=== PATIENT | female | born 1945 | race Caucasian/White ===

== ENCOUNTER 2021-07-14 01:50 | Day surgery (SDC) | payer MEDICARE, SELFPAY ==
[2021-07-03 09:17] VITALS: BMI 30.9
--- NOTE | 2021-07-03 09:24 | PC.NURSE ---
Report to the Outpatient Waiting Room, entrance under the green pavilion located off [facility], at time 06 on date _07/14/21 . OR Time: 814 . - You and your visitor will be asked a series of questions to screen for COVID 19 for your protection. - A mask is required within the hospital. - Only one visitor is allowed at this time. Patient visitors will be guided where to wait when not with patient. Preoperative COVID Testing Requirements: No COVID Test needed if: (proof is required; if not received patient will have Rapid Test prior to entry) - Patient has received COVID Vaccine at least 14 days prior to procedure date or - Patient has positive COVID test result within last 90 days of surgery date. COVID Test needed if above criteria is not met If not COVID vaccinated a COVID test must be conducted within 72 hours of surgery and patient is asked to isolate self from time of testing until procedure. You will go to the [facility] for your COVID testing. The [facility] [employer] Testing site is located at the corner [address] [facility]. You will only be called if COVID results are positive and your surgeon may reschedule your elective surgery date. Patients may have clear liquids (water, carbonated beverages, clear teas, apple juice) until 3 hours prior to surgery with a maximum of 20 ounces. - No food from midnight until time of surgery - Infants may have breast milk until 4 hours before surgery, infant formula 6 hours prior to surgery. - Children will be allowed to drink immediately following surgery. If applicable, please bring a bottle or sippy cup to assist with drinking. Juice, water, soda, and popsicles are readily available. For infants on formula, please bring formula the day of surgery. Pacifiers are allowed. Take the following medications with a SIP of water the morning of surgery: ___METOPROLOL Medications to discontinue per physician ____ASPIRIN AND PT STATES ALL VITAMINS AND SUPPLEMENTS 7 DAYS PRE OP PER DR RICCI Date to take last dose_07/06/21 Please no make-up, nail romanian, hairspray, perfume, deodorant, or body powder the day of surgery. No jewelry (including any body piercings) or valuables the day of surgery, leave them at home. Please take a shower or bath the night before, or the morning of, surgery with an antibacterial soap. Wear comfortable, loose fitting clothing. Children are encouraged to wear pajamas. - Jewelry must be removed prior to entering the operating room. Rings and piercings that are not removed may be cut off. - The hospital will not accept responsibility for valuables. - Please leave all valuables, including medications, at home the day of surgery. If you are going home after surgery, a licensed route salesman and driver must drive you home. - NO public transportation without another adult. - We recommend that an adult stay with you for 24 hours following discharge. - We also recommend that you do not drive, make important decision, drink alcoholic beverages, or take any drugs that were not prescribed by your health care provider for at least 24 hours after your discharge time. For Pediatric surgeries, we recommend two adults accompany the child home (only one inside the building at this time). Follow any additional instructions given to you from your surgeon. Telephone instructions given to _PATIENT and asked if any additional questions and then verbalized understanding. Patient advised to call surgeon office or pre surgery nurse liaison [phone] if any additional questions.
--- NOTE | 2021-07-09 11:29 | P.HP_ITS ---
H&P: HPI History of Present Illness Date/Time: 07/09/21 11:29 76-year-old stress incontinence. Mild overactive bladder symptoms Chief Complaint: stress incontinence Review of Systems Review of Systems: All systems reviewed & are unremarkable except as noted in HPI and below PMFSH Social History Social History Smoking status: Never smoker Alcohol intake: current Drinks per week: 15 Living arrangements: with family Spiritual care concerns: No Meds Home Medications and Allergies Home Medications Medication Instructions Recorded Confirmed Type L. gasseri-B. bifidum-B longum 1 cap PO DAILY 07/03/21 07/03/21 History [[facility]] allopurinol 100 mg PO DAILY 07/03/21 07/03/21 History aspirin [Adult Low Dose Aspirin] 81 mg PO HS 07/03/21 07/03/21 History cholecalciferol (vitamin D3) 50 mcg PO DAILY 07/03/21 07/03/21 History cyanocobalamin (vitamin B-12) 5,000 mcg PO DAILY 07/03/21 07/03/21 History garlic 1,000 mg PO DAILY 07/03/21 07/03/21 History utdpr-px-5-xuu-jjm-njyavvg-ast 1 cap PO DAILY 07/03/21 07/03/21 History [krill oil] loratadine 10 mg PO HS 07/03/21 07/03/21 History lysine 1,000 mg PO DAILY 07/03/21 07/03/21 History metoprolol succinate 50 mg PO QAM 07/03/21 07/03/21 History iueyulvm-btqbbpy-vklo-lutein 1 tablet PO DAILY 07/03/21 07/03/21 History [Centrum Silver [facility] Women[facility]] omeprazole 20 mg PO DAILY 07/03/21 07/03/21 History psyllium husk [Daily Fiber] 0.4 g PO DAILY 07/03/21 07/03/21 History simvastatin 40 mg PO QPM 07/03/21 07/03/21 History trimethoprim 100 mg PO HS 07/03/21 07/03/21 History turmeric root extract 1,500 mg PO DAILY 07/03/21 07/03/21 History zinc 50 mg PO DAILY 07/03/21 07/03/21 History Allergies Allergy/AdvReac Type Severity Reaction Status Date / Time codeine AdvReac EMOTIONAL Verified 07/03/21 08:47 lisinopril AdvReac Cough Verified 07/03/21 08:48 Exam Narrative: urethral hypermobility. No pelvic organ prone Assessment and Plan Assessment and plan (1) ARIES (stress urinary incontinence, female): Code(s): N39.3 - Stress incontinence (female) (male) Status: Acute Assessment and Plan: urethral sling
--- NOTE | 2021-07-14 06:54 | P.PNAN_ITS ---
Anes - Initial Pre Proc Eval Procedure: Operation Date: 07/14/21 08:15 Proposed Procedures p Urethral Sling - Walt Delaney MD Date/Time: 07/14/21 06:54 Surgeon: Walt Delaney MD Pre Op Diagnosis: stress inc Patient Data Age: 76 Gender: F Height: 1.69 m Weight: 88.45 kg Allergies Allergy/AdvReac Type Severity Reaction Status Date / Time codeine AdvReac EMOTIONAL Verified 07/14/21 06:29 lisinopril AdvReac Cough Verified 07/14/21 06:29 Home Medications Medication Instructions Recorded Confirmed Type L. gasseri-B. bifidum-B longum 1 cap PO DAILY 07/03/21 07/14/21 [facility] allopurinol 100 mg PO DAILY 07/03/21 07/14/21 History aspirin [Adult Low Dose Aspirin] 81 mg PO HS 07/03/21 07/14/21 History cholecalciferol (vitamin D3) 50 mcg PO DAILY 07/03/21 07/14/21 History cyanocobalamin (vitamin B-12) 5,000 mcg PO DAILY 07/03/21 07/14/21 History garlic 1,000 mg PO DAILY 07/03/21 07/03/21 History btdyv-bp-9-tpu-yjj-zfklbrn-ast 1 cap PO DAILY 07/03/21 07/14/21 History [krill oil] loratadine 10 mg PO HS 07/03/21 07/03/21 History lysine 1,000 mg PO DAILY 07/03/21 07/14/21 History metoprolol succinate 50 mg PO QAM 07/03/21 07/14/21 History jecespwx-vpnmxqi-ormq-lutein 1 tablet PO DAILY 07/03/21 07/14/21 History [Centrum Silver Ultra Women's] omeprazole 20 mg PO DAILY 07/03/21 07/14/21 History psyllium husk [Daily Fiber] 0.4 g PO DAILY 07/03/21 07/14/21 History trimethoprim 100 mg PO HS 07/03/21 07/14/21 History turmeric root extract 1,500 mg PO DAILY 07/03/21 07/14/21 History zinc 50 mg PO DAILY 07/03/21 07/14/21 History atorvastatin 40 mg PO QPM 07/14/21 07/14/21 History Patient hx anesthesia problems: none Family hx anesthesia problems: none Results Review: All pre-operative results and documents have been reviewed as part of the pre-operative evaluation. [facility] Past Medical History Medical History (Updated 07/14/21 @ 06:58 by Dallin Boyle DO) Hyperlipidemia Hypertension Social History Social History Smoking status: Never smoker Alcohol intake: current Drinks per week: 15 Living arrangements: with family Spiritual care concerns: No Anes - Eval Final PreProcedure Day of Procedure 07/14/21 06:54 Patient weight: obese Heart: regular rate and rhythm Lungs: clear to auscultation and normal air movement Airway: Mallampati scale class II Neurological: alert and oriented Last oral intake: >/= 8 hours ASA classification: III Emergent: no Anesthetic plan: proceed Anesthesia type and monitoring: general GIVS and standard monitoring Results Review: All pre-operative results and documents have been reviewed as part of the pre-operative evaluation. Informed Consent: The patient's anesthetic plan and its attendant risks and benefits were discussed with the patient/family/POA. Questions were solicited and answers provided to the satisfaction of the patient/family/POA.
[2021-07-14] MEDS: LACTATED RINGERS 1,000 ML 30 ML IV CONT (06:56)
[2021-07-14 07:02] VITALS: BP 151/77; PULSE 65; RESP 16; TEMP 36.7; O2SAT 98
--- NOTE | 2021-07-14 07:05 | WPDHPUPDATE1 ---
History and Physical Update Update Date/Time: 07/14/21 07:05 History and Physical has been reviewed, including an updated exam of the patient. There are NO changes in the patient's condition. Risks, benefits, and alternatives have been discussed and questions answered. Patient agrees to proceed with procedure.
[2021-07-14] MEDS: ceFAZolin 2 GM/D5W 50 ML 2 GM/50 ML BAG IVPB (08:19)
[2021-07-14] MEDS: LIDO 1%/EPINEPHRINE 1:100,000 50 ML VIAL 10 ML INFILTRATE (08:31)
[2021-07-14 08:55] VITALS: BP 133/70; PULSE 76; RESP 14; O2SAT 97
--- NOTE | 2021-07-14 09:06 | W.PM.PROC2 ---
Procedure Note - Detailed Date of Procedure 07/14/21 Pre-op Diagnosis stress incontinence Post-op Diagnosis same Procedure Performed mid urethral sling cystoscopy Surgeon Walt Delaney MD Indications This is a female with confirm stress urinary incontinence. She desires surgical correction. She understands the risks of bleeding, infection, injury to the urinary tract, vaginal mesh extrusion, urinary tract mesh erosion, obstructive voiding requiring a secondary procedure, hip and leg pain, dyspareunia, inability to improve overactive bladder symptoms. She agrees to proceed. Description of Procedure She was correctly identified. Informed consent obtained. She was brought the operating room. She was given appropriate anesthesia. She was given appropriate perioperative antibiotics. A time-out performed. I marked out the site of the inner thigh incisions. I anesthetized the skin and made those incisions. I anesthetized the anterior vaginal wall over the mid urethra. I made a 1 cm incision. I dissected out laterally taking great care not to injure the refilled vaginal wall. I passed the helical trocars. First on the left. Then on the right. I did this from the thigh incision towards the vaginal incision. The sling was connected to the trocars and brought out through the thigh incision. I tensioned the sling appropriately. I cut and the plastic sheaths. I then closed the incision with 2 0 Vicryl. On cystoscopy there is no tumors or surgical artifact. There was no surgical artifact in the urethra. I cut the excess sling material. Close incisions with glue. She was awakened and transferred to the PACU in stable condition. Implants Urethral sling Drains No Packing No Pathology none sent Complications No immediate complications Condition stable Disposition PACU
[2021-07-14 09:25] VITALS: BP 147/104; PULSE 61; RESP 18
[2021-07-14 09:55] VITALS: BP 139/89; PULSE 64; RESP 18
== END 2021-07-14 10:10 | disposition home or self-care (01) ==
PROVIDERS: Visit Provider Urology
PROC: (CPT 57288; principal; 2021-07-14 08:15)
DX: N39.3 Stress incontinence (female) (male) (principal); I10 Essential (primary) hypertension; E78.5 Hyperlipidemia, unspecified; Z79.82 Long term (current) use of aspirin; E66.9 Obesity, unspecified; Z68.31 Body mass index [BMI] 31.0-31.9, adult
CPT/HCPCS: 57288; A9270; C1771; J0690; J2704; J3010; J7030; J7120